=== PATIENT | male | born 1960 ===

== ENCOUNTER 2016-11-18 08:31 | Emergency (ER) | payer OTHER ==
[2016-11-18 08:38] VITALS: BP 155/85; PULSE 68; TEMP 97.9; O2SAT 99; BMI 29.7
[2016-11-18 09:01] VITALS: RESP 15
--- NOTE | 2016-11-18 09:22 | ED PDOC ---
Lower Extremity Pain/Injury Time Seen by Provider: 11/18/16 09:02 Chief Complaint (Nursing): Upper Extremity Problem/Injury Chief Complaint (Provider): Lower Extremity Problem/Injury History Per: Patient History/Exam Limitations: no limitations Onset/Duration Of Symptoms: Days (x7) Current Symptoms Are (Timing): Still Present Additional Complaint(s): Aiden Oneal is a 56 year old male with a past medical history of hypertension presenting to the ED for an evaluation of a 1 week history of left leg pain and swelling. 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 He denies any trauma , paresthesia, or weakness. PMD: Lo Acuna MD Past Medical History Reviewed: Historical Data, Nursing Documentation, Vital Signs Vital Signs: Last Vital Signs Temp 97.9 F 11/18/16 08:53 Pulse 68 11/18/16 08:53 Resp 15 11/18/16 08:53 BP 155/85 H 11/18/16 08:53 Pulse Ox 99 11/18/16 08:53 - Medical History PMH: HTN Denies: Chronic Kidney Disease - Surgical History Surgical History: No Surg Hx - Family History Family History: States: Unknown Family Hx - Social History Current smoker - smoking cessation education provided: No Ex-Smoker (has not smoked in the last 12 months): No Alcohol: None - Home Medications Home Medications: Ambulatory Orders Medication Instructions Recorded Naproxen [Naprosyn] 500 mg PO BID PRN #15 tablet 11/18/16 - Allergies Allergies/Adverse Reactions: Allergies Allergy/AdvReac Type Severity Reaction Status Date / Time No Known Allergies Allergy Verified 11/18/16 09:06 Review of Systems ROS Statement: Except As Marked, All Systems Reviewed And Found Negative Musculoskeletal: Positive for: Leg Pain (left leg pain and swelling) Neurological: Negative for: Weakness (or paresthesia ) Physical Exam - Reviewed Nursing Documentation Reviewed: Yes Vital Signs Reviewed: Yes - Physical Exam Appears: Positive for: Non-toxic, No Acute Distress Head Exam: Positive for: ATRAUMATIC, NORMOCEPHALIC Pulses-Dorsalis Pedis (L): 2+ Pulses-Dorsalis Pedis (R): 2+ Extremity: Positive for: Normal ROM (rull ROM to left knee), Tenderness ( minimal tenderness to left lower extremity), Swelling (left lower extremity: edema), Other (no erythema, no crepitus). Negative for: Pedal Edema, Calf Tenderness Neurologic/Psych: Positive for: Alert, Oriented - ECG O2 Sat by Pulse Oximetry: 99 (RA) Pulse Ox Interpretation: Normal Medical Decision Making Medical Decision Making: Time: 09:02 Impression: Left lower extremity pain and swelling Plan: * [RAD] Knee 3 Views LT * US Duplex Lower Extrm Vein Left * Toradol 30 mg IM * Reevaluation Scribe Attestation: Documented by Cele Whyte, acting as a scribe for Bronwyn Bermudez MD. Provider Scribe Attestation: All medical record entries made by the Scribe were at my direction and personally dictated by me. I have reviewed the chart and agree that the record accurately reflects my personal performance of the history, physical exam, medical decision making, and the department course for this patient. I have also personally directed, reviewed, and agree with the discharge instructions and disposition. Disposition - Clinical Impression Clinical Impression: Knee pain - Disposition Referrals: Julita Khan MD [Staff Provider] - Disposition: Routine/Home Disposition Time: 12:23 Condition: STABLE Prescriptions: Naproxen [Naprosyn] 500 mg PO BID PRN #15 tablet PRN Reason: Pain, Moderate (4-7) Instructions: Knee Pain (ED) Forms: [employer] (Salvadorean) Print Language: ESTONIAN
--- NOTE | 2016-11-18 10:05 | US ---
HISTORY: LLE swelling . PRIORS: None. FINDINGS: 2-D, color and duplex Doppler analysis of the lower extremity venous circulation using routine protocol from the femoral veins through the popliteal veins. Venous compressibility: Normal. Flow and augmentation patterns: Normal. Visualized veins upper third of calf: Normal. Suarez cyst: None. There is a 6.4 x 2.7 cm anechoic fluid collection in the prepatellar soft tissues. Incidental note is made of an enlarged inguinal lymph node. IMPRESSION: No sonographic or Doppler evidence for DVT in left lower extremity. 6.4 cm fluid collection in the prepatellar soft tissues. Clinical correlation and follow-up is advised.
--- NOTE | 2016-11-18 10:16 | RAD ---
PROCEDURE: Left Knee Radiographs. HISTORY: Pain. COMPARISON: None. FINDINGS: BONES: There is no acute displaced fracture or bone destruction. There is periarticular bone demineralization. JOINTS: There is mild tricompartmental degenerative osteoarthrosis, worse in the medial compartment. JOINT EFFUSION: There is a moderate suprapatellar joint effusion. OTHER FINDINGS: None. IMPRESSION: No acute fracture or dislocation. Mild tricompartmental degenerative osteoarthrosis, worse in the medial compartment. Moderate suprapatellar joint effusion.
== END 2016-11-18 12:41 | disposition home or self-care (01) ==
LOC: H.ER 08:31
DX: M25.562 Pain in left knee (principal)
CPT/HCPCS: 73562; 93971; 96372; 99284; J1885